=== PATIENT | female | born 1980 | race Caucasian/White ===

== ENCOUNTER 2020-07-14 15:15 | Emergency (ER) | payer BC ==
[2020-07-14 15:26] VITALS: BP 118/59; PULSE 77; TEMP 98.1; BMI 25.9
== END 2020-07-14 15:55 | disposition home or self-care (01) ==
LOC: JER 15:15
DX: J34.89 Other specified disorders of nose and nasal sinuses (principal); Z11.52 Encounter for screening for COVID-19
CPT/HCPCS: 99283-25; C9803; U0003